=== PATIENT | male | born 1980 | race Asian ===

== ENCOUNTER 2023-08-06 13:31 | Inpatient (IN) | payer OTHER ==
[2023-08-06 15:33] VITALS: BMI 25.8
[2023-08-06] MEDS ORDERED: MAGNESIUM HYDROX 2400MG/30ML ORAL SUSPENSION 30 ML CUP PO PRN (17:26)
[2023-08-06] MEDS ORDERED: ONDANSETRON *ODT* 4 MG TABLET SL PRN (17:26)
[2023-08-06] MEDS ORDERED: LOPERAMIDE HCL 2 MG CAPSULE PO PRN (17:26)
[2023-08-06] MEDS ORDERED: NALOXONE HCL 0.4 MG/ML VIAL IM PRN (17:26)
[2023-08-06] MEDS ORDERED: DICYCLOMINE HCL 10 MG CAPSULE PO PRN (17:26)
[2023-08-06] MEDS ORDERED: IBUPROFEN 600 MG TABLET (FP) PO PRN (17:26)
[2023-08-06] MEDS ORDERED: ACETAMINOPHEN 325 MG TABLET (FP) PO PRN (17:26)
[2023-08-06] MEDS ORDERED: hydrOXYzine PAMOATE 25 MG CAPSULE (FP) PO PRN (17:26)
[2023-08-06] MEDS ORDERED: NALOXONE HCL (KLOXXADO) 8 MG SPRAY NS PRN (17:26)
[2023-08-06] MEDS ORDERED: NICOTINE POLACRILEX 2 MG GUM BUC PRN (17:26)
[2023-08-06] MEDS ORDERED: POLYETHYLENE GLYCOL (HEALTHYLAX) 3350 17 GM PACKET PO PRN (17:26)
[2023-08-06] MEDS ORDERED: BISMUTH SUBSALICYLATE 524 MG/30 ML PO PRN (17:26)
[2023-08-06] MEDS ORDERED: BENZONATATE 200 MG CAPSULE PO PRN (17:26)
[2023-08-06] MEDS ORDERED: MAG HYDROX/AL HYDROX/SIMETH 30 ML UNIT-DOSE CUP PO PRN (17:26)
[2023-08-06] MEDS ORDERED: guaiFENesin 600 MG TABLET.ER (FP) PO PRN (17:26)
[2023-08-06] MEDS ORDERED: IBUPROFEN 400 MG TABLET (FP) PO PRN (17:26)
[2023-08-06] MEDS ORDERED: BENZOCAINE/MENTHOL (CHLORASEPTIC ) LOZENGE MM PRN (17:26)
[2023-08-06] MEDS: diazePAM 5 MG TABLET PO PRN (18:58)
[2023-08-06] MEDS: MELATONIN 5 MG TABLETS PO SCH (22:24)
[2023-08-06] MEDS: THIAMINE HCL 100 MG TABLET (FP) PO SCH (22:24)
[2023-08-06] MEDS: diazePAM 5 MG TABLET PO SCH (22:24)
[2023-08-06] MEDS: METHOCARBAMOL 500 MG TABLET PO PRN (22:24)
[2023-08-07] MEDS: diazePAM 5 MG TABLET PO SCH ×4 (05:52→22:16)
[2023-08-07] MEDS ORDERED: methaDONE HCL 10 MG TABLET PO SCH ×2 (10:00→10:30)
[2023-08-07] MEDS: PRENATAL VITAMINS W/ FOLIC ACID TABLET (FP) PO SCH (10:39)
[2023-08-07] MEDS: NICOTINE 21 MG/24 HOURS TOPICAL PATCH TD SCH (10:39)
[2023-08-07] MEDS: methaDONE 80 MG, methaDONE 20 MG PO SCH (10:43)
[2023-08-07] MEDS ORDERED: methaDONE HCL 40 MG DISPERSABLE TABLET PO SCH (11:15)
[2023-08-07 15:59] LABS: CHLORIDE 106 mmol/L (98-107); POTASSIUM 3.8 mmol/L (3.5-5.1); SODIUM 139 mmol/L (136-145)
[2023-08-07 16:03] LABS: HEMATOCRIT 31.5 % (35.4-49); HEMOGLOBIN 10.8 GM/dL (11.7-16.9); MCH 27.5 pg (25.7-33.7); MCHC 34.4 g/dl (32.0-35.9); MEAN CELL VOLUME 79.9 fl (80-96); PLATELET COUNT 93 10^3/uL (134-434); RBC 3.94 M/mm3 (4.00-5.60); WHITE BLOOD COUNT 3.4 K/mm3 (4.0-10.0)
[2023-08-07 16:04] LABS: ALBUMIN 2.6 g/dl (3.4-5.0); ANION GAP 4 mmol/L (4-13); BLOOD UREA NITROGEN 13.3 mg/dL (7-18); CALCIUM 8.1 mg/dL (8.5-10.1); CO2 29 mmol/L (21-32); GLUCOSE,RANDOM 115 mg/dL (74-106)
[2023-08-07 16:07] LABS: CREATININE 0.7 mg/dL (0.55-1.3); SGOT/AST 32 U/L (15-37); SGPT/ALT 17 U/L (13-61)
[2023-08-07 16:09] LABS: BILIRUBIN,TOTAL 0.9 mg/dL (0.2-1); TOT PROT 6.9 g/dl (6.4-8.2)
[2023-08-07 16:10] LABS: ALK PHOS 102 U/L (45-117)
[2023-08-07] MEDS: THIAMINE HCL 100 MG TABLET (FP) PO SCH (22:16)
[2023-08-07] MEDS: MELATONIN 5 MG TABLETS PO SCH (22:16)
[2023-08-08] MEDS: methaDONE 80 MG, methaDONE 20 MG PO SCH (05:22)
[2023-08-08] MEDS: diazePAM 5 MG TABLET PO SCH ×3 (05:22→22:17)
[2023-08-08] MEDS: NICOTINE 21 MG/24 HOURS TOPICAL PATCH TD SCH (10:11)
[2023-08-08] MEDS: PRENATAL VITAMINS W/ FOLIC ACID TABLET (FP) PO SCH (10:11)
[2023-08-08] MEDS: MELATONIN 5 MG TABLETS PO SCH (22:17)
[2023-08-08] MEDS: METHOCARBAMOL 500 MG TABLET PO PRN (22:17)
[2023-08-08] MEDS: THIAMINE HCL 100 MG TABLET (FP) PO SCH (22:17)
[2023-08-09] MEDS: methaDONE 80 MG, methaDONE 20 MG PO SCH (05:28)
[2023-08-09] MEDS: diazePAM 5 MG TABLET PO SCH ×2 (05:29→17:51)
[2023-08-09] MEDS: NICOTINE 21 MG/24 HOURS TOPICAL PATCH TD SCH (10:09)
[2023-08-09] MEDS: PRENATAL VITAMINS W/ FOLIC ACID TABLET (FP) PO SCH (10:09)
[2023-08-09] MEDS: diazePAM 5 MG TABLET PO PRN ×2 (10:11→14:26)
[2023-08-09 12:07] LABS: IRON SERUM 30 ug/dL (50-175)
[2023-08-09 12:09] LABS: TOTAL IRON BINDING CAPACITY 348 ug/dL (250-450)
[2023-08-09] MEDS: SULFAMETHOXAZOLE/TRIMETHOPRIM 800MG/160MG D.S. TABLET PO SCH ×2 (15:42→22:05)
[2023-08-09] MEDS: METHOCARBAMOL 500 MG TABLET PO PRN (16:50)
[2023-08-09] MEDS ORDERED: SUVOREXANT 10 MG TABLET PO PRN (22:00)
[2023-08-09] MEDS: THIAMINE HCL 100 MG TABLET (FP) PO SCH (22:05)
[2023-08-10] MEDS: methaDONE 80 MG, methaDONE 20 MG PO SCH (05:53)
[2023-08-10 05:59] VITALS: RESP 18
[2023-08-10] MEDS ORDERED: diazePAM 5 MG TABLET PO ONE (06:00)
[2023-08-10] MEDS: SULFAMETHOXAZOLE/TRIMETHOPRIM 800MG/160MG D.S. TABLET PO SCH (10:03)
[2023-08-10] MEDS: PRENATAL VITAMINS W/ FOLIC ACID TABLET (FP) PO SCH (10:03)
[2023-08-10] MEDS: NICOTINE 21 MG/24 HOURS TOPICAL PATCH TD SCH (10:04)
[2023-08-10 13:09] VITALS: BP 131/90; PULSE 99; TEMP 97.5
== END 2023-08-10 15:36 | disposition home or self-care (01) | DRG 773 ==
LOC: YASAS 13:31 → Y6N 17:57
PROVIDERS: ADMIT Allergy & Immunology; ATTEND Surgery
PROC: HZ2ZZZZ Detoxification Services for Substance Abuse Treatment (ICD-10-PCS; principal; 2023-08-06)
DX: F10.230 Alcohol dependence with withdrawal, uncomplicated (principal); F11.20 Opioid dependence, uncomplicated; F13.20 Sedative, hypnotic or anxiolytic dependence, uncomplicated; F14.20 Cocaine dependence, uncomplicated; F17.210 Nicotine dependence, cigarettes, uncomplicated; F31.9 Bipolar disorder, unspecified; F41.9 Anxiety disorder, unspecified; L02.415 Cutaneous abscess of right lower limb; M54.50 Low back pain, unspecified; G89.29 Other chronic pain; Z88.0 Allergy status to penicillin
CPT/HCPCS: 36415; 80053; 80307; 83540; 83550; 85027; 86780; 87635; 93005; 93010; Q0162

== ENCOUNTER 2023-08-16 16:25 | Inpatient (IN) | payer OTHER ==
[2023-08-16 19:03] VITALS: BMI 27.1
[2023-08-16] MEDS ORDERED: P-EPHED 60MG/TRIPROLIDI 2.5MG TABLET PO PRN (23:47)
[2023-08-16] MEDS ORDERED: hydrOXYzine PAMOATE 25 MG CAPSULE (FP) PO PRN (23:47)
[2023-08-16] MEDS ORDERED: BENZONATATE 200 MG CAPSULE PO PRN (23:47)
[2023-08-16] MEDS ORDERED: NALOXONE HCL 0.4 MG/ML VIAL IVPUSH PRN (23:47)
[2023-08-16] MEDS ORDERED: BENZOCAINE/MENTHOL (CHLORASEPTIC ) LOZENGE MM PRN (23:47)
[2023-08-16] MEDS ORDERED: ACETAMINOPHEN 325 MG TABLET (FP) PO PRN (23:47)
[2023-08-16] MEDS ORDERED: LOPERAMIDE HCL 2 MG CAPSULE PO PRN (23:47)
[2023-08-16] MEDS ORDERED: IBUPROFEN 400 MG TABLET (FP) PO PRN (23:47)
[2023-08-16] MEDS ORDERED: NALOXONE HCL (KLOXXADO) 8 MG SPRAY NS PRN (23:47)
[2023-08-16] MEDS ORDERED: COLLOIDAL OATMEAL 1 BAR EACH TP PRN (23:47)
[2023-08-16] MEDS ORDERED: guaiFENesin 600 MG TABLET.ER (FP) PO PRN (23:47)
[2023-08-17] MEDS: MELATONIN 5 MG TABLETS PO SCH ×2 (03:11→21:33)
[2023-08-17] MEDS ORDERED: methaDONE HCL 10 MG TABLET PO SCH (09:26)
[2023-08-17] MEDS ORDERED: methaDONE 40 MG, methaDONE 10 MG PO SCH (10:00)
[2023-08-17] MEDS: PRENATAL VITAMINS W/ FOLIC ACID TABLET (FP) PO SCH (10:14)
[2023-08-17] MEDS ORDERED: methaDONE HCL 10 MG TABLET PO ONE (11:27)
[2023-08-17] MEDS ORDERED: methaDONE 40 MG, methaDONE 10 MG PO ONE (11:46)
[2023-08-17] MEDS: THIAMINE HCL 100 MG TABLET (FP) PO SCH (21:33)
[2023-08-17] MEDS: MAG HYDROX/AL HYDROX/SIMETH 30 ML UNIT-DOSE CUP PO PRN (21:35)
[2023-08-18] MEDS ORDERED: methaDONE HCL 40 MG DISPERSABLE TABLET PO SCH (06:00)
[2023-08-18] MEDS ORDERED: methaDONE HCL 10 MG TABLET PO SCH (06:00)
[2023-08-18] MEDS: methaDONE 80 MG, methaDONE 20 MG PO SCH (06:53)
[2023-08-18] MEDS: PRENATAL VITAMINS W/ FOLIC ACID TABLET (FP) PO SCH (10:18)
[2023-08-18] MEDS: METHOCARBAMOL 500 MG TABLET PO PRN (13:21)
[2023-08-18] MEDS: MAG HYDROX/AL HYDROX/SIMETH 30 ML UNIT-DOSE CUP PO PRN (13:24)
[2023-08-18] MEDS: PANTOPRAZOLE 40 MG TABLET PO SCH (14:48)
[2023-08-18] MEDS: THIAMINE HCL 100 MG TABLET (FP) PO SCH (21:04)
[2023-08-18] MEDS: SUVOREXANT 10 MG TABLET PO PRN (21:05)
[2023-08-19] MEDS ORDERED: methaDONE HCL 10 MG TABLET PO SCH (06:00)
[2023-08-19] MEDS ORDERED: methaDONE 40 MG, methaDONE 20 MG PO SCH (06:00)
[2023-08-19] MEDS: methaDONE 80 MG, methaDONE 20 MG PO SCH (06:42)
[2023-08-19] MEDS: IBUPROFEN 600 MG TABLET (FP) PO PRN (10:23)
[2023-08-19] MEDS: PANTOPRAZOLE 40 MG TABLET PO SCH (10:23)
[2023-08-19] MEDS: PRENATAL VITAMINS W/ FOLIC ACID TABLET (FP) PO SCH (10:24)
[2023-08-19] MEDS: hydrOXYzine PAMOATE 25 MG CAPSULE (FP) PO PRN (10:26)
[2023-08-19] MEDS: THIAMINE HCL 100 MG TABLET (FP) PO SCH (21:16)
[2023-08-19] MEDS: SUVOREXANT 10 MG TABLET PO PRN (21:17)
[2023-08-20] MEDS: methaDONE 80 MG, methaDONE 20 MG PO SCH (06:50)
[2023-08-20] MEDS: PRENATAL VITAMINS W/ FOLIC ACID TABLET (FP) PO SCH (09:37)
[2023-08-20] MEDS: PANTOPRAZOLE 40 MG TABLET PO SCH (09:37)
[2023-08-20] MEDS: NICOTINE 14 MG/24 HOURS TOPICAL PATCH TD SCH (10:17)
[2023-08-20] MEDS: THIAMINE HCL 100 MG TABLET (FP) PO SCH (21:36)
[2023-08-20] MEDS: SUVOREXANT 10 MG TABLET PO PRN (21:38)
[2023-08-21] MEDS: methaDONE 80 MG, methaDONE 20 MG PO SCH (05:44)
[2023-08-21] MEDS ORDERED: methaDONE HCL 40 MG DISPERSABLE TABLET PO SCH (06:00)
[2023-08-21] MEDS ORDERED: methaDONE 40 MG, methaDONE 30 MG PO SCH (06:00)
[2023-08-21] MEDS: PRENATAL VITAMINS W/ FOLIC ACID TABLET (FP) PO SCH (10:26)
[2023-08-21] MEDS: NICOTINE 14 MG/24 HOURS TOPICAL PATCH TD SCH (10:26)
[2023-08-21] MEDS: DEXTROAMPHETAMINE/AMPHETAMINE 10 MG CAP.ER.24H PO SCH (10:26)
[2023-08-21] MEDS: PANTOPRAZOLE 40 MG TABLET PO SCH (10:26)
[2023-08-21] MEDS: hydrOXYzine PAMOATE 25 MG CAPSULE (FP) PO PRN (21:45)
[2023-08-21] MEDS: THIAMINE HCL 100 MG TABLET (FP) PO SCH (21:45)
[2023-08-21] MEDS: METHOCARBAMOL 500 MG TABLET PO PRN (21:45)
[2023-08-21] MEDS: SUVOREXANT 10 MG TABLET PO PRN (21:45)
[2023-08-22] MEDS: methaDONE 80 MG, methaDONE 20 MG PO SCH (06:37)
[2023-08-22] MEDS: DEXTROAMPHETAMINE/AMPHETAMINE 10 MG CAP.ER.24H PO SCH (09:50)
[2023-08-22] MEDS: PRENATAL VITAMINS W/ FOLIC ACID TABLET (FP) PO SCH (09:50)
[2023-08-22] MEDS: PANTOPRAZOLE 40 MG TABLET PO SCH (09:50)
[2023-08-22] MEDS: NICOTINE 14 MG/24 HOURS TOPICAL PATCH TD SCH (09:51)
[2023-08-22] MEDS: THIAMINE HCL 100 MG TABLET (FP) PO SCH (22:04)
[2023-08-22] MEDS: SUVOREXANT 10 MG TABLET PO PRN (22:05)
[2023-08-23] MEDS: methaDONE 80 MG, methaDONE 20 MG PO SCH (06:29)
[2023-08-23] MEDS: PANTOPRAZOLE 40 MG TABLET PO SCH (09:27)
[2023-08-23] MEDS: DEXTROAMPHETAMINE/AMPHETAMINE 10 MG CAP.ER.24H PO SCH (09:27)
[2023-08-23] MEDS: NICOTINE 14 MG/24 HOURS TOPICAL PATCH TD SCH (09:28)
[2023-08-23] MEDS: PRENATAL VITAMINS W/ FOLIC ACID TABLET (FP) PO SCH (09:30)
[2023-08-23] MEDS: THIAMINE HCL 100 MG TABLET (FP) PO SCH (21:39)
[2023-08-23] MEDS: SUVOREXANT 10 MG TABLET PO PRN (21:41)
[2023-08-24] MEDS: methaDONE 80 MG, methaDONE 20 MG PO SCH (06:45)
[2023-08-24] MEDS: DEXTROAMPHETAMINE/AMPHETAMINE 10 MG CAP.ER.24H PO SCH (09:41)
[2023-08-24] MEDS: PRENATAL VITAMINS W/ FOLIC ACID TABLET (FP) PO SCH (09:41)
[2023-08-24] MEDS: PANTOPRAZOLE 40 MG TABLET PO SCH (09:41)
[2023-08-24] MEDS: NICOTINE 14 MG/24 HOURS TOPICAL PATCH TD SCH (09:42)
[2023-08-24] MEDS: SUVOREXANT 10 MG TABLET PO PRN (21:30)
[2023-08-24] MEDS: THIAMINE HCL 100 MG TABLET (FP) PO SCH (21:30)
[2023-08-25] MEDS: methaDONE 80 MG, methaDONE 20 MG PO SCH (06:17)
[2023-08-25] MEDS: PANTOPRAZOLE 40 MG TABLET PO SCH (09:33)
[2023-08-25] MEDS: DEXTROAMPHETAMINE/AMPHETAMINE 10 MG CAP.ER.24H PO SCH (09:33)
[2023-08-25] MEDS: NICOTINE 14 MG/24 HOURS TOPICAL PATCH TD SCH (09:34)
[2023-08-25] MEDS: PRENATAL VITAMINS W/ FOLIC ACID TABLET (FP) PO SCH (09:34)
[2023-08-25] MEDS: SUVOREXANT 10 MG TABLET PO PRN (21:36)
[2023-08-25] MEDS: THIAMINE HCL 100 MG TABLET (FP) PO SCH (21:36)
[2023-08-26] MEDS: methaDONE 80 MG, methaDONE 20 MG PO SCH (06:07)
[2023-08-26] MEDS: PRENATAL VITAMINS W/ FOLIC ACID TABLET (FP) PO SCH (09:50)
[2023-08-26] MEDS: PANTOPRAZOLE 40 MG TABLET PO SCH (09:50)
[2023-08-26] MEDS: DEXTROAMPHETAMINE/AMPHETAMINE 10 MG CAP.ER.24H PO SCH (09:50)
[2023-08-26] MEDS: NICOTINE 14 MG/24 HOURS TOPICAL PATCH TD SCH (09:50)
[2023-08-26] MEDS: THIAMINE HCL 100 MG TABLET (FP) PO SCH (21:51)
[2023-08-26] MEDS: SUVOREXANT 10 MG TABLET PO PRN (21:52)
[2023-08-27] MEDS: methaDONE 80 MG, methaDONE 20 MG PO SCH (06:07)
[2023-08-27] MEDS: PANTOPRAZOLE 40 MG TABLET PO SCH (09:56)
[2023-08-27] MEDS: DEXTROAMPHETAMINE/AMPHETAMINE 10 MG CAP.ER.24H PO SCH (09:56)
[2023-08-27] MEDS: PRENATAL VITAMINS W/ FOLIC ACID TABLET (FP) PO SCH (09:57)
[2023-08-27] MEDS: NICOTINE 14 MG/24 HOURS TOPICAL PATCH TD SCH (09:57)
[2023-08-27] MEDS: POLYETHYLENE GLYCOL (HEALTHYLAX) 3350 17 GM PACKET PO PRN (09:59)
[2023-08-27] MEDS: SUVOREXANT 10 MG TABLET PO PRN (21:38)
[2023-08-27] MEDS: THIAMINE HCL 100 MG TABLET (FP) PO SCH (21:38)
[2023-08-27] MEDS: hydrOXYzine PAMOATE 25 MG CAPSULE (FP) PO PRN (21:38)
[2023-08-28] MEDS: methaDONE 80 MG, methaDONE 20 MG PO SCH (06:27)
[2023-08-28] MEDS: SENNOSIDES 8.6MG TABLET (FP) PO PRN (10:15)
[2023-08-28] MEDS: POLYETHYLENE GLYCOL (HEALTHYLAX) 3350 17 GM PACKET PO PRN (10:16)
[2023-08-28] MEDS: DEXTROAMPHETAMINE/AMPHETAMINE 10 MG CAP.ER.24H PO SCH (10:16)
[2023-08-28] MEDS: PANTOPRAZOLE 40 MG TABLET PO SCH (10:16)
[2023-08-28] MEDS: PRENATAL VITAMINS W/ FOLIC ACID TABLET (FP) PO SCH (10:17)
[2023-08-28] MEDS: NICOTINE 14 MG/24 HOURS TOPICAL PATCH TD SCH (10:17)
[2023-08-28] MEDS ORDERED: LACTULOSE 20 GM/30 ML UDC (FOR ORAL USE ONLY) PO ONE (15:44)
[2023-08-28] MEDS: THIAMINE HCL 100 MG TABLET (FP) PO SCH (21:38)
[2023-08-28] MEDS: hydrOXYzine PAMOATE 25 MG CAPSULE (FP) PO PRN (21:38)
[2023-08-28] MEDS: SUVOREXANT 10 MG TABLET PO PRN (21:38)
[2023-08-29] MEDS: methaDONE 80 MG, methaDONE 20 MG PO SCH (06:11)
[2023-08-29] MEDS: PRENATAL VITAMINS W/ FOLIC ACID TABLET (FP) PO SCH (09:59)
[2023-08-29] MEDS: DEXTROAMPHETAMINE/AMPHETAMINE 10 MG CAP.ER.24H PO SCH (09:59)
[2023-08-29] MEDS: PANTOPRAZOLE 40 MG TABLET PO SCH (09:59)
[2023-08-29] MEDS: NICOTINE 14 MG/24 HOURS TOPICAL PATCH TD SCH (09:59)
[2023-08-29] MEDS: SENNOSIDES 8.6MG TABLET (FP) PO PRN (10:00)
[2023-08-29] MEDS: SUVOREXANT 10 MG TABLET PO PRN (21:28)
[2023-08-29] MEDS: THIAMINE HCL 100 MG TABLET (FP) PO SCH (21:28)
[2023-08-30] MEDS: methaDONE 80 MG, methaDONE 20 MG PO SCH (06:27)
[2023-08-30] MEDS: DEXTROAMPHETAMINE/AMPHETAMINE 10 MG CAP.ER.24H PO SCH (09:34)
[2023-08-30] MEDS: PRENATAL VITAMINS W/ FOLIC ACID TABLET (FP) PO SCH (09:34)
[2023-08-30] MEDS: PANTOPRAZOLE 40 MG TABLET PO SCH (09:35)
[2023-08-30] MEDS: NICOTINE 14 MG/24 HOURS TOPICAL PATCH TD SCH (09:35)
[2023-08-30] MEDS: SUVOREXANT 10 MG TABLET PO PRN (21:27)
[2023-08-30] MEDS: THIAMINE HCL 100 MG TABLET (FP) PO SCH (21:27)
[2023-08-31] MEDS ORDERED: methaDONE HCL 10 MG TABLET PO SCH (06:00)
[2023-08-31] MEDS: methaDONE 80 MG, methaDONE 20 MG PO SCH (06:20)
[2023-08-31] MEDS: NICOTINE 14 MG/24 HOURS TOPICAL PATCH TD SCH (09:42)
[2023-08-31] MEDS: PANTOPRAZOLE 40 MG TABLET PO SCH (09:42)
[2023-08-31] MEDS: DEXTROAMPHETAMINE/AMPHETAMINE 10 MG CAP.ER.24H PO SCH (09:42)
[2023-08-31] MEDS: PRENATAL VITAMINS W/ FOLIC ACID TABLET (FP) PO SCH (09:42)
[2023-08-31] MEDS: SUVOREXANT 10 MG TABLET PO PRN (21:36)
[2023-08-31] MEDS: THIAMINE HCL 100 MG TABLET (FP) PO SCH (21:36)
[2023-09-01] MEDS: methaDONE 80 MG, methaDONE 20 MG PO SCH (06:35)
[2023-09-01] MEDS: PRENATAL VITAMINS W/ FOLIC ACID TABLET (FP) PO SCH (09:55)
[2023-09-01] MEDS: DEXTROAMPHETAMINE/AMPHETAMINE 10 MG CAP.ER.24H PO SCH (09:55)
[2023-09-01] MEDS: NICOTINE 14 MG/24 HOURS TOPICAL PATCH TD SCH (09:55)
[2023-09-01] MEDS: PANTOPRAZOLE 40 MG TABLET PO SCH (09:55)
[2023-09-01] MEDS: THIAMINE HCL 100 MG TABLET (FP) PO SCH (21:27)
[2023-09-01] MEDS: SUVOREXANT 10 MG TABLET PO PRN (21:28)
[2023-09-02] MEDS: methaDONE 80 MG, methaDONE 20 MG PO SCH (05:45)
[2023-09-02] MEDS: PRENATAL VITAMINS W/ FOLIC ACID TABLET (FP) PO SCH (09:40)
[2023-09-02] MEDS: PANTOPRAZOLE 40 MG TABLET PO SCH (09:41)
[2023-09-02] MEDS: NICOTINE 14 MG/24 HOURS TOPICAL PATCH TD SCH (09:41)
[2023-09-02] MEDS: DEXTROAMPHETAMINE/AMPHETAMINE 10 MG CAP.ER.24H PO SCH (09:41)
[2023-09-02] MEDS: THIAMINE HCL 100 MG TABLET (FP) PO SCH (21:35)
[2023-09-02] MEDS: SUVOREXANT 10 MG TABLET PO PRN (21:39)
[2023-09-03] MEDS: methaDONE 80 MG, methaDONE 20 MG PO SCH (06:24)
[2023-09-03] MEDS: DEXTROAMPHETAMINE/AMPHETAMINE 10 MG CAP.ER.24H PO SCH (10:06)
[2023-09-03] MEDS: PRENATAL VITAMINS W/ FOLIC ACID TABLET (FP) PO SCH (10:07)
[2023-09-03] MEDS: NICOTINE 14 MG/24 HOURS TOPICAL PATCH TD SCH (10:07)
[2023-09-03] MEDS: PANTOPRAZOLE 40 MG TABLET PO SCH (10:07)
[2023-09-03] MEDS ORDERED: LACTULOSE 20 GM/30 ML UDC (FOR ORAL USE ONLY) PO PRN (11:41)
[2023-09-03] MEDS: LACTULOSE 20 GM/30 ML UDC (FOR ORAL USE ONLY) PO PRN (12:29)
[2023-09-03] MEDS: SUVOREXANT 10 MG TABLET PO PRN (21:38)
[2023-09-03] MEDS: THIAMINE HCL 100 MG TABLET (FP) PO SCH (21:38)
[2023-09-04] MEDS: LACTULOSE 20 GM/30 ML UDC (FOR ORAL USE ONLY) PO PRN ×2 (06:20→21:39)
[2023-09-04] MEDS: methaDONE 80 MG, methaDONE 20 MG PO SCH (06:20)
[2023-09-04] MEDS: DEXTROAMPHETAMINE/AMPHETAMINE 10 MG CAP.ER.24H PO SCH (09:59)
[2023-09-04] MEDS: PANTOPRAZOLE 40 MG TABLET PO SCH (09:59)
[2023-09-04] MEDS: PRENATAL VITAMINS W/ FOLIC ACID TABLET (FP) PO SCH (09:59)
[2023-09-04] MEDS ORDERED: DEXTROAMPHETAMINE/AMPHETAMINE 10 MG CAP.ER.24H PO SCH (10:00)
[2023-09-04] MEDS: NICOTINE 14 MG/24 HOURS TOPICAL PATCH TD SCH (10:01)
[2023-09-04] MEDS: SENNOSIDES 8.6MG TABLET (FP) PO PRN ×2 (10:01→21:39)
[2023-09-04] MEDS: MAGNESIUM HYDROX 2400MG/30ML ORAL SUSPENSION 30 ML CUP PO PRN (12:37)
[2023-09-04] MEDS: SUVOREXANT 10 MG TABLET PO PRN (21:39)
[2023-09-04] MEDS: THIAMINE HCL 100 MG TABLET (FP) PO SCH (21:40)
[2023-09-05] MEDS: LACTULOSE 20 GM/30 ML UDC (FOR ORAL USE ONLY) PO PRN (06:12)
[2023-09-05] MEDS: methaDONE 80 MG, methaDONE 20 MG PO SCH (06:12)
[2023-09-05] MEDS: PRENATAL VITAMINS W/ FOLIC ACID TABLET (FP) PO SCH (09:43)
[2023-09-05] MEDS: DEXTROAMPHETAMINE/AMPHETAMINE 10 MG CAP.ER.24H PO SCH (09:43)
[2023-09-05] MEDS: NICOTINE 14 MG/24 HOURS TOPICAL PATCH TD SCH (09:43)
[2023-09-05] MEDS: SENNOSIDES 8.6MG TABLET (FP) PO PRN (09:44)
[2023-09-05] MEDS: PANTOPRAZOLE 40 MG TABLET PO SCH (09:44)
[2023-09-05] MEDS: MAGNESIUM HYDROX 2400MG/30ML ORAL SUSPENSION 30 ML CUP PO PRN (09:45)
[2023-09-05] MEDS: IBUPROFEN 600 MG TABLET (FP) PO PRN (21:28)
[2023-09-05] MEDS: THIAMINE HCL 100 MG TABLET (FP) PO SCH (21:29)
[2023-09-05] MEDS: SUVOREXANT 10 MG TABLET PO PRN (21:30)
[2023-09-06] MEDS: methaDONE 80 MG, methaDONE 20 MG PO SCH (06:00)
[2023-09-06] MEDS: DEXTROAMPHETAMINE/AMPHETAMINE 10 MG CAP.ER.24H PO SCH (10:07)
[2023-09-06] MEDS: PANTOPRAZOLE 40 MG TABLET PO SCH (10:07)
[2023-09-06] MEDS: NICOTINE 14 MG/24 HOURS TOPICAL PATCH TD SCH (10:07)
[2023-09-06] MEDS: PRENATAL VITAMINS W/ FOLIC ACID TABLET (FP) PO SCH (10:07)
[2023-09-06] MEDS: THIAMINE HCL 100 MG TABLET (FP) PO SCH (21:36)
[2023-09-06] MEDS: SUVOREXANT 10 MG TABLET PO PRN (21:37)
[2023-09-07] MEDS: methaDONE 80 MG, methaDONE 20 MG PO SCH (06:36)
[2023-09-07] MEDS: PANTOPRAZOLE 40 MG TABLET PO SCH (09:48)
[2023-09-07] MEDS: DEXTROAMPHETAMINE/AMPHETAMINE 10 MG CAP.ER.24H PO SCH (09:48)
[2023-09-07] MEDS: PRENATAL VITAMINS W/ FOLIC ACID TABLET (FP) PO SCH (09:49)
[2023-09-07] MEDS: NICOTINE 14 MG/24 HOURS TOPICAL PATCH TD SCH (09:49)
[2023-09-07] MEDS: SUVOREXANT 10 MG TABLET PO PRN (21:52)
[2023-09-07] MEDS: THIAMINE HCL 100 MG TABLET (FP) PO SCH (21:53)
[2023-09-08] MEDS: methaDONE 80 MG, methaDONE 20 MG PO SCH (05:48)
[2023-09-08] MEDS ORDERED: methaDONE HCL 40 MG DISPERSABLE TABLET PO SCH (06:00)
[2023-09-08] MEDS: DEXTROAMPHETAMINE/AMPHETAMINE 10 MG CAP.ER.24H PO SCH (09:44)
[2023-09-08] MEDS: PRENATAL VITAMINS W/ FOLIC ACID TABLET (FP) PO SCH (09:44)
[2023-09-08] MEDS: PANTOPRAZOLE 40 MG TABLET PO SCH (09:44)
[2023-09-08] MEDS: NICOTINE 14 MG/24 HOURS TOPICAL PATCH TD SCH (09:45)
[2023-09-08] MEDS: THIAMINE HCL 100 MG TABLET (FP) PO SCH (21:24)
[2023-09-08] MEDS: SUVOREXANT 10 MG TABLET PO PRN (21:24)
[2023-09-09] MEDS: methaDONE 80 MG, methaDONE 20 MG PO SCH (06:04)
[2023-09-09] MEDS: PRENATAL VITAMINS W/ FOLIC ACID TABLET (FP) PO SCH (09:54)
[2023-09-09] MEDS: DEXTROAMPHETAMINE/AMPHETAMINE 10 MG CAP.ER.24H PO SCH (09:55)
[2023-09-09] MEDS: NICOTINE 14 MG/24 HOURS TOPICAL PATCH TD SCH (09:55)
[2023-09-09] MEDS: PANTOPRAZOLE 40 MG TABLET PO SCH (09:55)
[2023-09-09] MEDS: SUVOREXANT 10 MG TABLET PO PRN (21:50)
[2023-09-09] MEDS: THIAMINE HCL 100 MG TABLET (FP) PO SCH (21:50)
[2023-09-10] MEDS: methaDONE 80 MG, methaDONE 20 MG PO SCH (06:09)
[2023-09-10] MEDS: NICOTINE 14 MG/24 HOURS TOPICAL PATCH TD SCH (09:53)
[2023-09-10] MEDS: PANTOPRAZOLE 40 MG TABLET PO SCH (09:53)
[2023-09-10] MEDS: PRENATAL VITAMINS W/ FOLIC ACID TABLET (FP) PO SCH (09:53)
[2023-09-10] MEDS: DEXTROAMPHETAMINE/AMPHETAMINE 10 MG CAP.ER.24H PO SCH (09:53)
[2023-09-10] MEDS: THIAMINE HCL 100 MG TABLET (FP) PO SCH (21:10)
[2023-09-10] MEDS: SUVOREXANT 10 MG TABLET PO PRN (21:11)
[2023-09-11] MEDS: methaDONE 80 MG, methaDONE 20 MG PO SCH (06:15)
[2023-09-11] MEDS: DEXTROAMPHETAMINE/AMPHETAMINE 10 MG CAP.ER.24H PO SCH (09:52)
[2023-09-11] MEDS: PANTOPRAZOLE 40 MG TABLET PO SCH (09:52)
[2023-09-11] MEDS: PRENATAL VITAMINS W/ FOLIC ACID TABLET (FP) PO SCH (09:52)
[2023-09-11] MEDS: NICOTINE 14 MG/24 HOURS TOPICAL PATCH TD SCH (09:53)
[2023-09-11] MEDS ORDERED: SUVOREXANT 10 MG TABLET PO ONE (23:15)
[2023-09-11] MEDS: THIAMINE HCL 100 MG TABLET (FP) PO SCH (23:30)
[2023-09-12] MEDS: methaDONE 80 MG, methaDONE 20 MG PO SCH (06:47)
[2023-09-12] MEDS: PRENATAL VITAMINS W/ FOLIC ACID TABLET (FP) PO SCH (10:58)
[2023-09-12] MEDS: NICOTINE 14 MG/24 HOURS TOPICAL PATCH TD SCH (10:58)
[2023-09-12] MEDS: PANTOPRAZOLE 40 MG TABLET PO SCH (10:58)
[2023-09-12] MEDS ORDERED: DEXTROAMPHETAMINE/AMPHETAMINE 10 MG CAP.ER.24H PO ONE (11:09)
[2023-09-12] MEDS: THIAMINE HCL 100 MG TABLET (FP) PO SCH (21:34)
[2023-09-12] MEDS ORDERED: SUVOREXANT 10 MG TABLET PO PRN (22:00)
[2023-09-13] MEDS: methaDONE 80 MG, methaDONE 20 MG PO SCH (06:20)
[2023-09-13 07:13] VITALS: BP 141/88; PULSE 92; RESP 18; TEMP 97
[2023-09-13] MEDS ORDERED: DEXTROAMPHETAMINE/AMPHETAMINE 10 MG CAP.ER.24H PO ONE (09:00)
[2023-09-13] MEDS: PANTOPRAZOLE 40 MG TABLET PO SCH (09:11)
[2023-09-13] MEDS: PRENATAL VITAMINS W/ FOLIC ACID TABLET (FP) PO SCH (09:11)
[2023-09-13] MEDS: NICOTINE 14 MG/24 HOURS TOPICAL PATCH TD SCH (09:12)
== END 2023-09-13 09:30 | disposition home or self-care (01) | DRG 772 ==
LOC: YASAS 16:25 → Y5N 08-17 02:18
PROVIDERS: ADMIT Allergy & Immunology; ATTEND Psychiatry & Neurology Pain Medicine
PROC: HZ42ZZZ Group Counseling for Substance Abuse Treatment, Cognitive-Behavioral (ICD-10-PCS; principal; 2023-08-17)
DX: F10.20 Alcohol dependence, uncomplicated (principal); F11.20 Opioid dependence, uncomplicated; F13.20 Sedative, hypnotic or anxiolytic dependence, uncomplicated; F14.20 Cocaine dependence, uncomplicated; F12.20 Cannabis dependence, uncomplicated; F39 Unspecified mood [affective] disorder; F90.9 Attention-deficit hyperactivity disorder, unspecified type; F41.0 Panic disorder [episodic paroxysmal anxiety]; K59.00 Constipation, unspecified; Z62.810 Personal history of physical and sexual abuse in childhood; Z88.8 Allergy status to other drugs, medicaments and biological substances; Z56.0 Unemployment, unspecified; Z59.00 Homelessness unspecified
CPT/HCPCS: 87635